=== PATIENT | male | born 1940 | race Caucasian/White ===

== ENCOUNTER 2022-04-26 06:54 | Day surgery (SDC) | payer MEDICARE, OTHER ==
[2022-04-26] VITALS (9 sets, daily range): BP systolic 111–135; BP diastolic 56–79; PULSE 50–59; TEMP 97.6–97.9
[~2022-04-26] VITALS: Ht 180.3 cm; Wt 78.8 kg
[~2022-04-26 06:54] MED LIST: ELIQUIS 5MG PO
[2022-04-26] MEDS ORDERED: NORCO 325 MG-51 TAB PO (09:09)
--- NOTE | 2022-04-26 11:32 | NUR ---
REPORT RECEIVED FROM TESTING LEAD, ADIA. PT TRANSPORTED VIA STRETCHER TO [facility], VSS, PT CLEARING THROAT C/O PAIN. PT DENIES ABD PAIN; DRSG X3 C, D, I. CALL MA WITHIN REACH; SAFETY MAINTAINED.
--- NOTE | 2022-04-26 11:33 | NUR ---
HEART RATE REGULAR, LUNG SOUNDS EXP WHEEZING. HOB ELEVATED SLIGHTLY.
--- NOTE | 2022-04-26 11:40 | NUR ---
SPOUSE, [place] AT BEDSIDE. PT STATES "THROAT FEELS LIKE ITS SWOLLEN." ANES NOTIFIED, ADVISED TO GIVE PT ICE CHIPS. PT WOULD LIKE TO TRY WARM COFFEE INSTEAD.
--- NOTE | 2022-04-26 12:30 | NUR ---
PT TOLERATING PO LIQUIDS WELL.
--- NOTE | 2022-04-26 12:45 | NUR ---
PT TALKING EASIER AT THIS TIME, STILL CLEARING THROAT.
--- NOTE | 2022-04-26 13:00 | NUR ---
PT C/O ABD PAIN 01/31. DRSG C, D, I. PT REQUESTS PUDDING AND THEN PO PAIN MEDS. TOLERATING PUDDING WELL.
--- NOTE | 2022-04-26 14:20 | NUR ---
DISCHARGE INSTRUCTIONS GIVEN TO PT AND SPOUSE; QUESTIONS ANSWERED; UNDERSTANDING VERBALIZED. PT DISCHARGED OUT OF DEPT VIA WC WITH SPOUSE DRIVING. SAFETY MAINTAINED.
--- NOTE | 2022-04-26 14:22 | NUR ---
PT AMBULATED TO BR WELL WITHOUT DIFFUCULTIES.
== END 2022-04-26 14:22 | disposition home or self-care (01) ==
LOC: SDCO 06:54
DX: K40.20 Bilateral inguinal hernia, without obstruction or gangrene, not specified as recurrent (principal); I48.0 Paroxysmal atrial fibrillation; E11.9 Type 2 diabetes mellitus without complications
CPT/HCPCS: C1781; J0690; J2405; J2704; J3010; J7120